=== PATIENT | female | born 1960 | race Caucasian/White ===

== ENCOUNTER 2017-01-24 08:45 | Day surgery (SDC) | payer BC ==
[2017-01-19 12:50] VITALS: BMI 39.5
--- NOTE | 2017-01-23 17:11 | HP ---
DATE OF ADMISSION: Olga Campa is a 56-year-old patient who had previously undergone left total knee arthroplasty. She is known to have residual adhesions about the left knee despite appropriate physical therapy. After having treatment options discussed, she elected to proceed with manipulation under anesthesia of the left knee as well as steroid injection. Consent was obtained. Her past medical history is hypertension. PAST SURGICAL HISTORY: Bilateral knee arthroscopy, bilateral total knee arthroplasty. Daily medications: 1. Lisinopril. 2. Aspirin. 3. Amlodipine. 4. Ibuprofen. ALLERGIES: MORPHINE, TAPE AND STERI-STRIPS. SOCIAL HISTORY: Patient denies tobacco use. Physical evaluation of the left knee: Shows well-healed incision. Range of motion is 0 to 105 degrees, there is some weakness with quadriceps strength. Adequate hamstring strength. Ligaments stable. Hip rotation without pain. Radiographs of the left knee revealed a stable -appearing total knee arthroplasty. IMPRESSION: 1. Left knee adhesions. 2. History of left total knee arthroplasty. PLAN: Manipulation under anesthesia of the left knee with steroid injection.
[~2017-01-24 08:45] MED LIST: LACTATED RINGERS 1,000 ML IV SCH; MIDAZOLAM 2 MG/2 ML VIAL IV PRN; ceFAZolin 2 GM in SODIUM CHLORIDE 0.9% 100 ML IVPB ONE
[2017-01-24 09:03] VITALS: TEMP 97.4
[2017-01-24] MEDS ORDERED: LIDOCAINE 1% 20 ML VIAL (10MG/ML) FOR IV START INTRADERMA ONE (09:17)
[2017-01-24] MEDS ORDERED: DEXAMETHASONE SOD PHOSPHATE 10 MG/ML 1 ML VIAL IV ONE (09:23)
[2017-01-24] MEDS ORDERED: SCOPOLAMINE 1.5MG/72HR PATCH TRANSDERM ONE (09:24)
[2017-01-24] MEDS ORDERED: ONDANSETRON 4 MG/2 ML VIAL IVP ONE (09:24)
[2017-01-24] MEDS ORDERED: KETOROLAC 30 MG/ML 1 ML VIAL ONE (09:53)
[2017-01-24] MEDS ORDERED: PROPOFOL 10 MG/ML 20 ML VIAL IV ONE (09:53)
--- NOTE | 2017-01-24 10:03 | P.OP ---
Date of Procedure: 01/24/17 Preoperative Diagnosis: Left knee adhesions Postoperative Diagnosis: Left knee adhesions Procedure(s) Performed: Manipulation under anesthesia left knee with steroid injection Anesthesia: MAC Surgeon: Kevin Mahmood Estimated Blood Loss (ml): 0 Pathology: none sent Condition: stable Disposition: PACU Indications for Procedure: 56-year-old patient seen with persistent left knee adhesions after previously under having gone total knee arthroplasty. After having options discussed, she elected to proceed with manipulation under anesthesia left knee with steroid injection. Description of Procedure: The patient underwent IV sedation by the department of anesthesia. Once sufficient anesthesia was noted a manipulation was performed of the left knee achieving full extension and 135 of flexion. The superior lateral aspect of the left knee was now prepped and draped in the normal sterile orthopedic fashion. A solution 1 mL Depo-Medrol and 3 mL quarter percent Marcaine were now injected intra-articular left knee without difficulty. A sterile Band-Aid was applied. The knee was again taken through full range of motion. The patient was awakened having tolerated procedure well.
[2017-01-24] MEDS: HYDROmorphone 1 MG/ML 1 ML SYRINGE IVP PRN ×2 (10:15→10:20)
[2017-01-24 11:43] VITALS: RESP 16
[2017-01-24] MEDS ORDERED: HYDROcodone/APAP 7.5-325MG 1 EACH TAB PO ONE (11:50)
[2017-01-24 11:55] VITALS: BP 111/72; PULSE 63
== END 2017-01-24 12:36 | disposition home or self-care (01) ==
LOC: OR 08:45
PROVIDERS: ATTEND Orthopaedic Surgery
DX: M23.8X2 Other internal derangements of left knee (principal); Z96.652 Presence of left artificial knee joint; I10 Essential (primary) hypertension; Z87.891 Personal history of nicotine dependence; M19.90 Unspecified osteoarthritis, unspecified site; Z79.82 Long term (current) use of aspirin; Z79.1 Long term (current) use of non-steroidal anti-inflammatories (NSAID); Z79.891 Long term (current) use of opiate analgesic; Z79.899 Other long term (current) drug therapy; Z88.5 Allergy status to narcotic agent; Z91.09 Other allergy status, other than to drugs and biological substances
CPT/HCPCS: 27570; 20610; J2250; J1100; J2405; J1885; J1170; J2704